=== PATIENT | male | born 1940 | race Caucasian/White ===

== ENCOUNTER 2020-01-27 10:47 | Inpatient (IN) | payer MEDICARE, OTHER ==
[~2020-01-27] VITALS: Ht 172.7 cm; Wt 81.8 kg
--- NOTE | 2020-01-27 11:51 | NUR ---
Arrived for level 1 stroke with onset at 0800 this morning. Awakened at 0500 this morning and was fine upon waking. Pt suddenly developed inability to move thumb and fingers on left hand. Denies any numbness or weakness in arms or legs. Sensation is intact, no ataxia or aphasia. Pt is right handed. 1200 Pt feels left finger movement has improved,however, his left thumb still is not "working."
--- NOTE | 2020-01-27 11:55 | NUR ---
Patient to CT Addendum: 01/27/20 at 1156 by HKISER with arin stroke rn
[2020-01-27 12:12] LABS: BASOPHILS % (AUTO) 0.8 % (0-1); EOSINOPHILS # (AUTO) 0.2 X10'3 (0-0.9); EOSINOPHILS % (AUTO) 3.5 % (0-6); HEMATOCRIT 41.9 % (42.0-52.0); HEMOGLOBIN 14.2 g/dl (14.0-17.9); LYMPHOCYTES # (AUTO) 1.5 X10'3 (1.1-4.8); LYMPHOCYTES % (AUTO) 27.4 % (21-51); MEAN CORPUSCULAR HEMOGLOBIN 33.5 PG (27.0-31.0); MEAN CORPUSCULAR VOLUME 98.5 FL (78-98); MONOCYTES # (AUTO) 0.6 X10'3 (0-0.9); MONOCYTES % (AUTO) 11.6 % (2-12); NEUTROPHILS # (AUTO) 3.1 X10'3 (1.8-7.7); NEUTROPHILS % (AUTO) 56.7 % (42-75); PLATELET COUNT 272 X10'3 (140-440); RED BLOOD COUNT 4.25 X10'6 (4.70-6.10); RED CELL DISTRIBUTION WIDTH 13.3 % (11.5-14.5); WHITE BLOOD COUNT 5.4 X10'3 (4.5-11.0)
[2020-01-27 12:25] LABS: PARTIAL THROMBOPLASTIN TIME 28 SECONDS (22-32)
[2020-01-27 12:30] LABS: ALANINE AMINOTRANSFERASE 44 U/L (12-78); ALBUMIN 3.9 G/DL (3.4-5.0); ALBUMIN/GLOBULIN RATIO 1.1 (1.1-1.5); ALKALINE PHOSPHATASE 92 IU/L (46-116); ANION GAP 6 (8-16); ASPARTATE AMINO TRANSFERASE 28 U/L (10-37); BILIRUBIN,TOTAL 0.4 MG/DL (0.1-1.0); BLOOD UREA NITROGEN 15 MG/DL (7-18); BUN/CREATININE RATIO 15.3 (5.4-32.0); CALCIUM 8.9 MG/DL (8.5-10.1); CHLORIDE 107 MMOL/L (99-107); CREATININE 0.98 MG/DL (0.60-1.10); GLUCOSE 108 MG/DL (70-104); POTASSIUM 4.3 MMOL/L (3.5-5.1); SODIUM 142 MMOL/L (135-145); TOTAL CARBON DIOXIDE 29.4 MMOL/L (24-32); TOTAL PROTEIN 7.6 G/DL (6.4-8.2); eGFR 74 ML/MIN
--- NOTE | 2020-01-27 12:30 | NUR ---
Tele-neuro eval completed with Dr Bowen at this time.
[2020-01-27] MEDS ORDERED: FLO0.4C PO (12:57)
[2020-01-27] MEDS ORDERED: OMEP10CA5 PO (12:57)
[2020-01-27] MEDS ORDERED: LEVO25TA7 PO (12:57)
[2020-01-27] MEDS ORDERED: SIMV20TA PO (12:57)
[2020-01-27] MEDS ORDERED: magnesium Cl slow-release 64mg tablet PO PRN (13:20)
[2020-01-27] MEDS ORDERED: diphenhydrAMINE 25mg capsule PO PRN (13:20)
[2020-01-27] MEDS ORDERED: bisacodyl 10mg suppository rectal RC PRN (13:20)
[2020-01-27] MEDS ORDERED: mag hydrox/Alum hydrox/simeth 30ml oral suspension PO PRN (13:20)
[2020-01-27] MEDS ORDERED: potassium CL 10mEq/100ml bag 100 ML IV PRN ×2 (13:20)
[2020-01-27] MEDS ORDERED: morphine 2 MG/ML inj. syringe IV PRN ×2 (13:20)
[2020-01-27] MEDS ORDERED: magnesium hydroxide 30ml (MOM) UD suspension PO PRN (13:20)
[2020-01-27] MEDS ORDERED: ondansetron/PF 4mg/2ml inj IV PRN (13:20)
[2020-01-27] MEDS ORDERED: acetaminophen 325mg tablet PO PRN ×2 (13:20)
[2020-01-27] MEDS ORDERED: magnesium 4gm in 100ml NS 100 ML IV PRN (13:20)
[2020-01-27] MEDS ORDERED: HYDROcodone/acetaminophen 5mg/325mg tablet PO PRN (13:20)
[2020-01-27] MEDS ORDERED: magnesium 2GM in 50ml NS 50 ML IV PRN (13:20)
[2020-01-27] MEDS ORDERED: potassium Cl 20 mEq SR tablet PO PRN ×2 (13:20)
[2020-01-27] MEDS ORDERED: acetaminophen 650mg rectal suppository RC PRN (13:20)
[2020-01-27] MEDS ORDERED: aspirin 325mg tablet PO ONE (13:20)
[2020-01-27] MEDS: atorvastatin 20mg tablet PO SCH (13:20)
[2020-01-27] MEDS ORDERED: HYDROcodone/acetaminophen 10/325mg tab PO PRN (13:20)
[2020-01-27 14:09] LABS: CHOL/HDL RATIO 3.2 (0.00-4.99); CHOLESTEROL 150 MG/DL (0-200); HDL CHOLESTEROL 47 MG/DL (35-60); LDL CHOLESTEROL 87 MG/DL (50-100); TRIGLYCERIDES 107 MG/DL (20-135)
[2020-01-27 14:15] LABS: HEMOGLOBIN A1C 6.1 % (4.5-6.2)
--- NOTE | 2020-01-27 14:32 | NUR ---
Patient in room ED 9. I have received report from Toyin in ED and had the opportunity to ask questions and assume patient care.
[2020-01-27 14:50] LABS: CLARITY,URINE CLEAR (Clear); COLOR,URINE YELLOW (Yellow); GLUCOSE, URINE NEGATIVE (Neg); KETONES,URINE NEGATIVE (Neg); LEUKOCYTE ESTERASE ,URINE NEGATIVE (Neg); NITRITES, URINE NEGATIVE (Neg); OCCULT BLOOD,URINE NEGATIVE (Neg); PH,URINE 6.5 (4.8-8.0); PROTEIN,URINE NEGATIVE (Neg); UA COLLECTION TYPE CLN CATCH MIDSTREAM; UROBILINOGEN,URINE 0.2 E.U/dL (0.2-1.0)
--- NOTE | 2020-01-27 15:23 | NUR ---
Pt arrived, tucked in, provided comfort measures, hung fluids
[2020-01-27 15:26] VITALS: BP 144/75
[2020-01-27] MEDS: normal saline 1000ml 1,000 ML IV SCH (15:37)
--- NOTE | 2020-01-27 16:00 | NUR ---
Received TC from RN that pt is vegetarian, informed dietary. Addendum: 01/27/20 at [address] Amended: Links added.
[2020-01-27 18:00] VITALS: BP 139/67
--- NOTE | 2020-01-27 18:28 | NUR ---
Patient in room [facility]TH[facility] 4022. I have received report from Taniya SAENZ and had the opportunity to ask questions and assume patient care.
[2020-01-27] MEDS: heparin, porcine 5000 units/ml vial SQ SCH (19:52)
[2020-01-27] MEDS: K and/or MAG REPLACEMENT MC SCH (19:52)
--- NOTE | 2020-01-27 21:54 | NUR ---
Patient still not able to move thumb. Index finger able to move more. Patient able to feel sensations. During finger to nose test patient not able to point with index finger but able to move his fist to follow commands. Addendum: 01/27/20 at 2159 by Tamia Parsons RN Amended: Links added.
[2020-01-27 22:00] VITALS: BP 102/54
[2020-01-28] VITALS (7 sets, daily range): BP systolic 101–117; BP diastolic 52–69
[2020-01-28] MEDS: normal saline 1000ml 1,000 ML IV SCH ×3 (03:44→21:21)
--- NOTE | 2020-01-28 06:22 | NUR ---
Problems reprioritized. Patient report given, questions answered & plan of care reviewed with Desiree SAENZ.
--- NOTE | 2020-01-28 06:25 | NUR ---
Patient in room ORTHO 4021. I have received report from Tamia SAENZ and had the opportunity to ask questions and assume patient care.
[2020-01-28 06:31] LABS: BASOPHILS % (AUTO) 0.6 % (0-1); EOSINOPHILS # (AUTO) 0.2 X10'3 (0-0.9); EOSINOPHILS % (AUTO) 4.4 % (0-6); HEMATOCRIT 39.4 % (42.0-52.0); HEMOGLOBIN 13.4 g/dl (14.0-17.9); LYMPHOCYTES # (AUTO) 1.3 X10'3 (1.1-4.8); LYMPHOCYTES % (AUTO) 27.4 % (21-51); MEAN CORPUSCULAR HEMOGLOBIN 33.7 PG (27.0-31.0); MEAN CORPUSCULAR HGB CONC 34.1 g/dL (33.0-36.5); MEAN CORPUSCULAR VOLUME 98.8 FL (78-98); MEAN PLATELET VOLUME 6.9 FL (7.4-10.4); MONOCYTES # (AUTO) 0.6 X10'3 (0-0.9); MONOCYTES % (AUTO) 12.3 % (2-12); NEUTROPHILS # (AUTO) 2.7 X10'3 (1.8-7.7); NEUTROPHILS % (AUTO) 55.3 % (42-75); PLATELET COUNT 235 X10'3 (140-440); RED BLOOD COUNT 3.98 X10'6 (4.70-6.10); RED CELL DISTRIBUTION WIDTH 13.1 % (11.5-14.5); WHITE BLOOD COUNT 4.8 X10'3 (4.5-11.0)
[2020-01-28 06:53] LABS: ALANINE AMINOTRANSFERASE 40 U/L (12-78); ALBUMIN 3.3 G/DL (3.4-5.0); ALBUMIN/GLOBULIN RATIO 0.8 (1.1-1.5); ALKALINE PHOSPHATASE 84 IU/L (46-116); ANION GAP 9 (8-16); ASPARTATE AMINO TRANSFERASE 21 U/L (10-37); BILIRUBIN,TOTAL 0.6 MG/DL (0.1-1.0); BLOOD UREA NITROGEN 14 MG/DL (7-18); BUN/CREATININE RATIO 15.2 (5.4-32.0); CALCIUM 8.3 MG/DL (8.5-10.1); CHLORIDE 110 MMOL/L (99-107); CHOL/HDL RATIO 3.3 (0.00-4.99); CHOLESTEROL 141 MG/DL (0-200); CREATININE 0.92 MG/DL (0.60-1.10); GLUCOSE 99 MG/DL (70-104); HDL CHOLESTEROL 43 MG/DL (35-60); LDL CHOLESTEROL 83 MG/DL (50-100); PHOSPHORUS 2.9 MG/DL (2.3-4.5); POTASSIUM 4.2 MMOL/L (3.5-5.1); SODIUM 143 MMOL/L (135-145); TOTAL CARBON DIOXIDE 23.9 MMOL/L (24-32); TOTAL PROTEIN 7.4 G/DL (6.4-8.2); TRIGLYCERIDES 83 MG/DL (20-135); eGFR 79 ML/MIN
[2020-01-28] MEDS: heparin, porcine 5000 units/ml vial SQ SCH ×2 (07:58→20:20)
[2020-01-28] MEDS: tamsulosin 0.4mg capsule PO SCH (07:58)
[2020-01-28] MEDS: levoTHYROXINE 25mcg tablet PO SCH (07:58)
[2020-01-28] MEDS: pantoprazole 40mg Tablet.DR PO SCH (07:59)
[2020-01-28] MEDS: aspirin 81mg tablet.DR PO SCH (07:59)
[2020-01-28] MEDS: atorvastatin 20mg tablet PO SCH ×2 (07:59→09:25)
[2020-01-28] MEDS: K and/or MAG REPLACEMENT MC SCH ×2 (08:00→21:21)
[2020-01-28] MEDS ORDERED: atorvastatin 10mg tablet PO SCH (08:00)
--- NOTE | 2020-01-28 10:03 | NUR ---
Paged Larry for Carotid order.
[2020-01-28] MEDS ORDERED: iohexol 350MG/ML 100ml bottle IV ONE (10:40)
[2020-01-28] MEDS ORDERED: atorvastatin 20mg tablet PO ONE (11:20)
[2020-01-28] MEDS ORDERED: clopidogrel 300mg tablet PO ONE (15:15)
--- NOTE | 2020-01-28 18:49 | NUR ---
Patient in room ORTHO 4022. I have received report from LETTY Ramírez and had the opportunity to ask questions and assume patient care.
[2020-01-29] VITALS: BP 115/59
[2020-01-29 02:00] VITALS: BP 148/61
[2020-01-29 04:00] VITALS: BP 115/64
[2020-01-29 05:53] VITALS: BP 135/67
--- NOTE | 2020-01-29 06:20 | NUR ---
Problems reprioritized. Patient report given, questions answered & plan of care reviewed with LETTY Goodrich.
--- NOTE | 2020-01-29 06:33 | NUR ---
Received report from Jory SAENZ
[2020-01-29 06:55] LABS: BASOPHILS % (AUTO) 0.6 % (0-1); EOSINOPHILS # (AUTO) 0.2 X10'3 (0-0.9); EOSINOPHILS % (AUTO) 4.7 % (0-6); HEMATOCRIT 38.1 % (42.0-52.0); HEMOGLOBIN 13.3 g/dl (14.0-17.9); LYMPHOCYTES # (AUTO) 1.4 X10'3 (1.1-4.8); LYMPHOCYTES % (AUTO) 29.9 % (21-51); MEAN CORPUSCULAR HEMOGLOBIN 34.5 PG (27.0-31.0); MEAN CORPUSCULAR HGB CONC 34.8 g/dL (33.0-36.5); MEAN CORPUSCULAR VOLUME 99.3 FL (78-98); MEAN PLATELET VOLUME 6.8 FL (7.4-10.4); MONOCYTES # (AUTO) 0.6 X10'3 (0-0.9); MONOCYTES % (AUTO) 12.7 % (2-12); NEUTROPHILS # (AUTO) 2.5 X10'3 (1.8-7.7); NEUTROPHILS % (AUTO) 52.1 % (42-75); PLATELET COUNT 231 X10'3 (140-440); RED BLOOD COUNT 3.84 X10'6 (4.70-6.10); WHITE BLOOD COUNT 4.7 X10'3 (4.5-11.0)
[2020-01-29 07:07] VITALS: BP 115/64
[2020-01-29 07:23] LABS: ALANINE AMINOTRANSFERASE 35 U/L (12-78); ALBUMIN 3.2 G/DL (3.4-5.0); ALKALINE PHOSPHATASE 72 IU/L (46-116); ANION GAP 7 (8-16); ASPARTATE AMINO TRANSFERASE 25 U/L (10-37); BILIRUBIN,TOTAL 0.5 MG/DL (0.1-1.0); BLOOD UREA NITROGEN 11 MG/DL (7-18); BUN/CREATININE RATIO 10.9 (5.4-32.0); CALCIUM 8.1 MG/DL (8.5-10.1); CHLORIDE 111 MMOL/L (99-107); CREATININE 1.01 MG/DL (0.60-1.10); GLUCOSE 102 MG/DL (70-104); MAGNESIUM 1.9 MG/DL (1.5-2.4); PHOSPHORUS 2.4 MG/DL (2.3-4.5); POTASSIUM 4.1 MMOL/L (3.5-5.1); SODIUM 143 MMOL/L (135-145); TOTAL CARBON DIOXIDE 25.5 MMOL/L (24-32); TOTAL PROTEIN 6.3 G/DL (6.4-8.2); eGFR 71 ML/MIN
[2020-01-29] MEDS: K and/or MAG REPLACEMENT MC SCH (08:00)
[2020-01-29] MEDS: levoTHYROXINE 25mcg tablet PO SCH (08:00)
[2020-01-29] MEDS: pantoprazole 40mg Tablet.DR PO SCH (08:00)
[2020-01-29] MEDS ORDERED: clopidogrel 75mg tablet PO SCH (08:00)
[2020-01-29] MEDS: tamsulosin 0.4mg capsule PO SCH (08:00)
[2020-01-29] MEDS: atorvastatin 20mg tablet PO SCH (08:00)
[2020-01-29] MEDS: aspirin 81mg tablet.DR PO SCH (08:00)
[2020-01-29] MEDS: heparin, porcine 5000 units/ml vial SQ SCH (08:01)
[2020-01-29] MEDS ORDERED: ASPI-1071 PO (13:57)
[2020-01-29] MEDS ORDERED: CLOP75TA35 PO (13:57)
[2020-01-29] MEDS ORDERED: ATOR20TA66 PO (13:57)
[2020-01-29] MEDS ORDERED: PANT40TA4 PO (13:57)
--- NOTE | 2020-01-29 16:47 | NUR ---
patient was discharged IV and tele was removed from patient. Medication was called into [facility].
[2020-02-06] MEDS ORDERED: CLOP75TA15 PO (12:21)
[2020-02-06] MEDS ORDERED: GLUC-221 PO (12:21)
[2020-02-06] MEDS ORDERED: PANT-47 PO (12:21)
[2020-02-06] MEDS ORDERED: ATOR80TA PO (12:21)
[2020-02-06] MEDS ORDERED: TURM538C PO (12:21)
[2020-02-06] MEDS ORDERED: ASPI-1265 PO (12:21)
[2020-02-06] MEDS ORDERED: SUPER B COMPLEX PO (12:21)
== END 2020-01-29 15:00 | disposition home health service (06) | DRG 66 ==
LOC: ER 10:48 → ED HOLD 13:19 → ORTHO 4S 15:28
PROVIDERS: ADMIT Family Medicine; ATTEND Family Medicine
PROC: B3251ZZ Computerized Tomography (CT Scan) of Bilateral Common Carotid Arteries using Low Osmolar Contrast (ICD-10-PCS; principal; 2020-01-28)
PROC: B32G1ZZ Computerized Tomography (CT Scan) of Bilateral Vertebral Arteries using Low Osmolar Contrast (ICD-10-PCS; 2020-01-28)
PROC: B3281ZZ Computerized Tomography (CT Scan) of Bilateral Internal Carotid Arteries using Low Osmolar Contrast (ICD-10-PCS; 2020-01-28)
DX: I63.9 Cerebral infarction, unspecified (principal); E03.9 Hypothyroidism, unspecified; E78.5 Hyperlipidemia, unspecified; G47.30 Sleep apnea, unspecified; K21.9 Gastro-esophageal reflux disease without esophagitis; N40.0 Benign prostatic hyperplasia without lower urinary tract symptoms; Z79.02 Long term (current) use of antithrombotics/antiplatelets; Z79.82 Long term (current) use of aspirin; Z79.899 Other long term (current) drug therapy; Z82.49 Family history of ischemic heart disease and other diseases of the circulatory system
CPT/HCPCS: 36415; 70450; 70496; 70498; 70544; 70551; 71045; 80053; 80061; 81003; 82948; 83036; 83735; 84100; 84443; 85025; 85610; 85651; 85730; 86885; 86900; 86901; 87081; 93005; 93306; 97110; 97116; 97161; 97530; 99285; G0378; J1644; J7030; Q9967

== ENCOUNTER 2020-11-15 13:53 | Emergency (ER) | payer MEDICARE, OTHER ==
[~2020-11-15] VITALS: Ht 177.8 cm; Wt 81.8 kg
[~2020-11-15 13:53] MED LIST: ASPI-1265 PO; ATOR80TA PO; CLOP75TA15 PO; FLO0.4C PO; GLUC-221 PO; LEVO25TA7 PO; PANT-47 PO; SUPER B COMPLEX PO; TURM538C PO
[2020-11-15 16:00] LABS: ALANINE AMINOTRANSFERASE 35 U/L (12-78); ALBUMIN 3.1 G/DL (3.4-5.0); ALKALINE PHOSPHATASE 96 IU/L (46-116); ANION GAP 6 (8-16); ASPARTATE AMINO TRANSFERASE 25 U/L (10-37); BILIRUBIN,TOTAL 0.4 MG/DL (0.1-1.0); BLOOD UREA NITROGEN 17 MG/DL (7-18); BUN/CREATININE RATIO 20.2 (5.4-32.0); CALCIUM 7.5 MG/DL (8.5-10.1); CHLORIDE 112 MMOL/L (99-107); CREATININE 0.84 MG/DL (0.60-1.10); GLUCOSE 106 MG/DL (70-104); POTASSIUM 3.8 MMOL/L (3.5-5.1); SODIUM 142 MMOL/L (135-145); TOTAL CARBON DIOXIDE 23.8 MMOL/L (24-32); TOTAL PROTEIN 6.1 G/DL (6.4-8.2); eGFR 88 ML/MIN
[2020-11-15] MEDS ORDERED: iohexol 300mg/ml 100ml inj. ONE (16:09)
[2020-11-15 17:07] VITALS: BP 142/74
== END 2020-11-15 17:06 | disposition home or self-care (01) ==
LOC: ER 13:54
DX: S70.02XA Contusion of left hip, initial encounter (principal); Z79.899 Other long term (current) drug therapy; W11.XXXA Fall on and from ladder, initial encounter; Y93.89 Activity, other specified; Y92.89 Other specified places as the place of occurrence of the external cause; Y99.8 Other external cause status
CPT/HCPCS: 36415; 73701; 80053; 99285; Q9967

== ENCOUNTER 2021-12-07 11:48 | Emergency (ER) | payer MEDICARE, OTHER ==
[~2021-12-07] VITALS: Ht 172.7 cm; Wt 86.0 kg
[2021-12-07 12:35] LABS: BASOPHILS % (AUTO) 0.3 % (0-1); EOSINOPHILS # (AUTO) 0.1 X10'3 (0-0.9); EOSINOPHILS % (AUTO) 0.8 % (0-6); HEMATOCRIT 41.8 % (42.0-52.0); HEMOGLOBIN 14.3 g/dl (14.0-17.9); LYMPHOCYTES # (AUTO) 1.2 X10'3 (1.1-4.8); LYMPHOCYTES % (AUTO) 10.9 % (21-51); MEAN CORPUSCULAR HEMOGLOBIN 34.1 PG (27.0-31.0); MEAN CORPUSCULAR HGB CONC 34.1 g/dL (33.0-36.5); MEAN CORPUSCULAR VOLUME 99.8 FL (78-98); MEAN PLATELET VOLUME 6.8 FL (7.4-10.4); MONOCYTES # (AUTO) 0.9 X10'3 (0-0.9); MONOCYTES % (AUTO) 8.2 % (2-12); NEUTROPHILS # (AUTO) 8.6 X10'3 (1.8-7.7); NEUTROPHILS % (AUTO) 79.8 % (42-75); PLATELET COUNT 285 X10'3 (140-440); RED BLOOD COUNT 4.18 X10'6 (4.70-6.10); RED CELL DISTRIBUTION WIDTH 12.7 % (11.5-14.5); WHITE BLOOD COUNT 10.8 X10'3 (4.5-11.0)
[2021-12-07 12:43] LABS: ALANINE AMINOTRANSFERASE 65 U/L (12-78); ALBUMIN 4.1 G/DL (3.4-5.0); ALBUMIN/GLOBULIN RATIO 1.3 (1.1-1.5); ALKALINE PHOSPHATASE 105 IU/L (46-116); ANION GAP 10 (8-16); ASPARTATE AMINO TRANSFERASE 86 U/L (10-37); BILIRUBIN,TOTAL 2.1 MG/DL (0.1-1.0); BLOOD UREA NITROGEN 17 MG/DL (7-18); CHLORIDE 103 MMOL/L (99-107); CREATININE 1.06 MG/DL (0.60-1.10); GLUCOSE 196 MG/DL (70-104); POTASSIUM 4.1 MMOL/L (3.5-5.1); SODIUM 140 MMOL/L (135-145); TOTAL CARBON DIOXIDE 26.6 MMOL/L (24-32); TOTAL PROTEIN 7.3 G/DL (6.4-8.2); eGFR 67 ML/MIN
[2021-12-07] MEDS ORDERED: LIDOcaine Viscous 15ml cup MM ONE (16:35)
[2021-12-07] MEDS ORDERED: mag hydrox/Alum hydrox/simeth 30ml oral suspension PO ONE (16:35)
[2021-12-07] MEDS ORDERED: ondansetron 4mg rapidly disintigrating tab PO ONE (16:35)
[2021-12-07] MEDS ORDERED: pantoprazole 40mg Tablet.DR PO SCH (16:36)
[2021-12-07 16:55] VITALS: BP 169/88
== END 2021-12-07 16:57 | disposition home or self-care (01) ==
LOC: ER 11:49
DX: R10.13 Epigastric pain (principal); R07.89 Other chest pain; M54.9 Dorsalgia, unspecified; G47.30 Sleep apnea, unspecified; Z79.82 Long term (current) use of aspirin; Z79.899 Other long term (current) drug therapy
CPT/HCPCS: 36415; 71045; 76700; 80053; 83880; 84484; 85025; 93005; 99285

== ENCOUNTER 2023-06-09 07:53 | Emergency (ER) | payer MEDICARE, OTHER ==
[~2023-06-09] VITALS: Ht 172.7 cm; Wt 81.2 kg
[2023-06-09 07:55] VITALS: BP 147/90
[2023-06-09] MEDS ORDERED: TETanus/Pertussis (Acell)/Diphther VAC/PF (Tdap-Adult) 0.5ml syringe IMVAC ONE (08:35)
[2023-06-09] MEDS ORDERED: LIDOcaine 1% 30ml preserv. free vial IJ ONE (09:15)
[2023-06-09] MEDS ORDERED: cephalexin 250mg capsule PO ONE (10:00)
[2023-06-09] MEDS ORDERED: CEPH-585 PO (10:15)
== END 2023-06-09 10:15 | disposition home or self-care (01) ==
LOC: ER 07:53
DX: S61.011A Laceration without foreign body of right thumb without damage to nail, initial encounter (principal); W27.0XXA Contact with workbench tool, initial encounter; Y93.89 Activity, other specified; Y92.89 Other specified places as the place of occurrence of the external cause; Y99.8 Other external cause status
CPT/HCPCS: 12002; 73140; 90471; 90715; 99284; A6449

== ENCOUNTER 2025-10-17 10:11 | Emergency (ER) | payer MEDICARE, OTHER ==
[~2025-10-17] VITALS: Ht 170.2 cm; Wt 83.1 kg
[~2025-10-17 10:11] MED LIST changes: +ATOR-429 PO; -ATOR80TA PO; -FLO0.4C PO; +TAMS-55 PO
--- NOTE | 2025-10-17 11:00 | RADIOLOGY REPORT ---
CT CT HEAD INDICATION: fall with headstrike, pain COMPARISON: None TECHNIQUE: CT of the head without intravenous contrast. RADIATION DOSE: CTDIvol: 69.8 mGy, DLP: 1382.7 mGy*cm FINDINGS: There is no evidence of acute intracranial hemorrhage, extra-axial collection, mass effect, midline shift, herniation or hydrocephalus. The ventricles, sulci and cisterns are age appropriate. The locke-white differentiation is intact. The visualized paranasal sinuses and mastoid air cells are clear. The surrounding soft tissues and osseous structures are unremarkable. IMPRESSION: No evidence of acute intracranial hemorrhage, mass effect or hydrocephalus.
--- NOTE | 2025-10-17 11:09 | RADIOLOGY REPORT ---
CLINICAL HISTORY: fall injury with headstrike COMPARISON: None TECHNIQUE: Axial CT images of the cervical spine were obtained without IV contrast. Coronal and sagittal reformatted images were obtained. All CT scans at this medical facility are performed using dose modulation techniques as appropriate to a performed exam including the following: Automated exposure control was utilized; adjustment of the MA and/or KV according to patient size; and use of iterative reconstruction technique. CTDIvol = 23.14 mGy DLP = 639.43 mGy-cm FINDINGS: Bones: Mild reversal of the normal cervical lordosis. Minimal anterolisthesis of C2 on C3 and minimal retrolisthesis of C3 on C4 and C4 on C5. Vertebral body heights are maintained. Posterior elements are intact. No acute fracture. Multilevel moderate to severe disc space narrowing in the cervical spine with associated endplate sclerosis and endplate spurring. No significant spinal canal stenosis. Multilevel facet and uncinate hypertrophy with areas of moderate neural foraminal stenosis. Paraspinal soft tissues: Prevertebral and paraspinal soft tissues are unremarkable. Other: Moderate atherosclerotic calcification at the left carotid bifurcation. Ground-glass attenuation in the upper lungs, may be partly due to motion artifact. Infectious or inflammatory etiology can not be completely excluded. Small calcified granuloma in the posterior aspect of the right upper lobe. IMPRESSION: 1. No evidence of acute fracture in the cervical spine. 2. Reversal of the normal cervical lordosis with multilevel minimal spondylolisthesis as described above. 3. 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 4. Ground-glass attenuation in the upper lungs, may be partly due to motion artifact. Superimposed infectious or inflammatory etiology not excluded in the appropriate clinical setting. Correlate with clinical findings.
[2025-10-17 11:43] LABS: MEAN PLATELET VOLUME 7.1 FL (7.4-10.4); RED CELL DISTRIBUTION WIDTH 12.8 % (11.5-14.5)
[2025-10-17 11:51] LABS: CREATININE 0.96 MG/DL (0.60-1.10); TOTAL CARBON DIOXIDE 27.4 MMOL/L (24-32); eCRCL 53 ML/MIN; eGFR 74 ML/MIN
--- NOTE | 2025-10-17 12:01 | RADIOLOGY REPORT ---
CLINICAL INDICATION: Left femur contusion TECHNIQUE: 1 radiographic views of the pelvis and 2 views of the left hip were obtained. Comparison: None FINDINGS/IMPRESSION: There is no evidence of acute fracture or dislocation. Moderate bilateral femoroacetabular joint osteoarthrosis. Degenerative changes of the pubic symphysis. Partially visualized degenerative changes of the lumbosacral spine.
--- NOTE | 2025-10-17 12:01 | RADIOLOGY REPORT ---
CLINICAL INDICATION: Left leg contusion TECHNIQUE: 2 radiographic views of the left tibia/fibula were obtained. Comparison: None FINDINGS/IMPRESSION: There is no evidence of acute fracture or dislocation. The visualized joint space is well maintained. The alignment is anatomical. There is no radiopaque foreign body.
--- NOTE | 2025-10-17 12:01 | RADIOLOGY REPORT ---
CLINICAL INDICATION: Left leg contusion TECHNIQUE: 2 radiographic views of the left femur were obtained. Comparison: CT LOWER EXTREMITY on DOS: 11/15/20 FINDINGS/IMPRESSION: There is no evidence of acute fracture or dislocation. The visualized joint space is well maintained. The alignment is anatomical. There is no radiopaque foreign body.
--- NOTE | 2025-10-17 12:18 | Physician Documentation ---
History of Present Illness ~ Chief Complaint: Trauma Level 3 Stated Complaint: FALL Time Seen by MD: 12:17 Primary Medical Doctor: UNKNOWN Mode of Arrival: POV HPI [age] Year-old male with past medical history of diabetes mellitus, hypothyroidism, hyperlipidemia, CVA presented to the ER with chief complaints of fall. He endorses that he had sustained a fall on Fridays for 40 5:00 p.m. while kneeling on the scaffolding and he could not able to use the feet while on the ladder and he was little bit slower after that he had multiple bumps over the left leg and left thigh right side of the face and he also complaining of the left ear ache. He had a dizziness and lightheadedness during the time of fall and he denied other cerebrovascular accident symptoms Tetanus within 5 years?: No Medication Reconciliation Allergies: Coded Allergies: No Known Allergies (Unverified , 10/17/25) Scheduled Aspirin (Aspirin), 1 TAB PO DAILY, (Reported) Atorvastatin Calcium* (Lipitor*), 1 TABLET PO HS, (Reported) Clopidogrel Bisulfate (Plavix), 1 TAB PO DAILY, (Reported) Glucosam/Chond/Hyalu/Cf Borate (Move Free Joint Health Tablet), 1 TAB PO DAILY, (Reported) Levothyroxine Sodium (Levothyroxine Sodium), 2 TAB PO DAILY, (Reported) Pantoprazole Sodium (PROTONIX tablet), 40 MG PO DAILY, (Reported) Tamsulosin Hcl* (Flomax*), 1 CAP PO DAILY, (Reported) Turmeric Root Extract (Turmeric), 1 CAP PO DAILY, (Reported) [Super B Complex], 1 TAB PO DAILY, (Reported) Past Medical History Past Medical History: No Pertinent History, High Cholesterol, Sleep Apnea, Diabetes, Hypothyroidism Past Surgical History: other Other Past Surgical History: Unknown Alcohol Use: None Drug Use: none Lives with: Spouse Lives In: Home Review of Systems All Other Systems at this time: Reviewed and Negative ROS Reviewed in full and negative except positive pertinent as in HPI Physical Exam Vital Signs: Temperature: 98.3, Source: Oral, Heart Rate: 63, Respiratory Rate: 20, BP: 116/63, Pulse Oximetry: 97, Weight: 83.100 Oxygen Flow Rate: 0 General Appearance: alert, WD/WN, no apparent distress Head: contusions, swelling Face: swelling Eye Lid: normal inspection Pupils/EOM/Fundus: PERRLA, EOM intact Ears: normal inspection, decreased hearing Nose: normal inspection Mouth: normal inspection Gag present: Yes Neck: non-tender, full range of motion, normal alignment, normal inspection, limited range of motion Respiratory: lungs clear, normal breath sounds, no respiratory distress Chest: normal inspection, non-tender, symmetrical Cardiovascular: normal peripheral pulses, regular rate, rhythm, no edema, no gallop, no JVD, no murmur Gastrointestinal: normal palpation, non-tender, bowels sounds present Rectal: deferred Back: normal inspection, no CVA tenderness Pelvis: normal Extremities Bruise in healing stages over the left lateral aspect of the leg and left femur and healing bruises over the right side of the face. Skin: warm/dry, swelling Neurologic: oriented x4, precast molder II-XII nml as tested, memory intact Motor / Sensory: no motor deficit Reflexes: 2+ bicep (R), 2+ bicep (L), 2+ tricep (R), 2+ tricep (L), 2+ knee (R), 2+ knee (L), 2+ ankle (R), 2+ ankle (L) Thoughts/Hallucinations: normal thought pattern Affect: appropriate Best Eye Response: (4) open spontaneously Best Verbal Response: (5) oriented Best Motor Response: (6) obeys commands [place] Total: 14 Progress Results/Orders Results/Orders Vital Signs 10/17/25 10/17/25 10/17/25 10/17/25 10:19 10:30 11:15 11:50 Temp 98.0 98.0 98.0 98.3 Pulse 64 60 59 63 Resp 16 16 17 20 B/P (MAP) 134/71 132/76 (94) 113/67 (82) 116/63 (80) Pulse Ox 97 96 96 97 O2 Flow Rate 0 0 0 0 10/17/25 10/17/25 10/17/25 11:52 12:47 13:57 Temp 98.3 98.3 Pulse 67 Resp 20 22 20 B/P (MAP) 110/69 (83) 106/75 Pulse Ox 97 97 O2 Flow Rate 0 Laboratory Tests Test 10/17/25 11:27 White Blood Count 6.1 Red Blood Count 3.80 L Hemoglobin 12.7 L Hematocrit 36.9 L Mean Corpuscular Volume 97.1 Mean Corpuscular Hemoglobin 33.4 H Mean Corpuscular Hemoglobin Concent 34.4 Red Cell Distribution Width 12.8 Platelet Count 258 Mean Platelet Volume 7.1 L Neutrophils (%) (Auto) 68.5 Lymphocytes (%) (Auto) 12.8 L Monocytes (%) (Auto) 14.5 H Eosinophils (%) (Auto) 3.3 Basophils (%) (Auto) 0.9 Neutrophils # (Auto) 4.2 Lymphocytes # (Auto) 0.8 L Monocytes # (Auto) 0.9 Eosinophils # (Auto) 0.2 Basophils # (Auto) 0.1 CBC Comment Sodium Level 140 Potassium Level 4.1 Chloride Level 106 Carbon Dioxide Level 27.4 Anion Gap 7 L Blood Urea Nitrogen 17 Creatinine 0.96 Estimated GFR/1.73 m2 74 BUN/Creatinine Ratio 17.7 Glucose Level 88 Calcium Level 8.6 Total Bilirubin 1.1 H Aspartate Amino Transf (AST/SGOT) 29 Alanine Aminotransferase (ALT/SGPT) 29 Alkaline Phosphatase 112 Total Protein 6.8 Albumin 3.2 L Globulin 3.6 Albumin/Globulin Ratio 0.9 L Chemistry Comments EKG/XRAY/CT/US/VASC/MRI CT : Impression CT CT HEAD INDICATION: fall with headstrike, pain COMPARISON: None TECHNIQUE: CT of the head without intravenous contrast. RADIATION DOSE: CTDIvol: 69.8 mGy, DLP: 1382.7 mGy*cm FINDINGS: There is no evidence of acute intracranial hemorrhage, extra-axial collection, mass effect, midline shift, herniation or hydrocephalus. The ventricles, sulci and cisterns are age appropriate. The locke-white differentiation is intact. The visualized paranasal sinuses and mastoid air cells are clear. The surrounding soft tissues and osseous structures are unremarkable. IMPRESSION: No evidence of acute intracranial hemorrhage, mass effect or hydrocephalus. Electronically Signed by:ARIC SMITH MD Date & Time: 10/17/251057 Dictated by: ARIC SMITH MD Dictation date and time: 10/17/25 105 Primary Care Provider: NO PRIMARY CARE PROVIDER cc: EVANGELISTA MORRISON LACE SEWER ~ Patient: ELIZA COOL Medical Record: [id number] [facility] : 1940, Age: 85 Sex: Male Location: ER Patient Status: [facility] ER Service Date/Time: 10/17/251025 Ordering Physician: EVANGELISTA MORRISON LACE SEWER Exam: CT CERVICAL SPINE CLINICAL HISTORY: fall injury with headstrike COMPARISON: None TECHNIQUE: Axial CT images of the cervical spine were obtained without IV contrast. Coronal and sagittal reformatted images were obtained. All CT scans at this medical facility are performed using dose modulation techniques as appropriate to a performed exam including the following: Automated exposure control was utilized; adjustment of the MA and/or KV according to patient size; and use of iterative reconstruction technique. CTDIvol = 23.14 mGy DLP = 639.43 mGy-cm FINDINGS: Bones: Mild reversal of the normal cervical lordosis. Minimal anterolisthesis of C2 on C3 and minimal retrolisthesis of C3 on C4 and C4 on C5. Vertebral body heights are maintained. Posterior elements are intact. No acute fracture. Multilevel moderate to severe disc space narrowing in the cervical spine with associated endplate sclerosis and endplate spurring. No significant spinal canal stenosis. Multilevel facet and uncinate hypertrophy with areas of moderate neural foraminal stenosis. Paraspinal soft tissues: Prevertebral and paraspinal soft tissues are unremarkable. Other: Moderate atherosclerotic calcification at the left carotid bifurcation. Ground-glass attenuation in the upper lungs, may be partly due to motion artifact. Infectious or inflammatory etiology can not be completely excluded. Small calcified granuloma in the posterior aspect of the right upper lobe. IMPRESSION: 1. No evidence of acute fracture in the cervical spine. 2. Reversal of the normal cervical lordosis with multilevel minimal spondylolisthesis as described above. 3. 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 4. Ground-glass attenuation in the upper lungs, may be partly due to motion artifact. Superimposed infectious or inflammatory etiology not excluded in the appropriate clinical setting. Correlate with clinical findings. Electronically Signed by:ARIC ALBERTO DO Date & Time: 10/17/251105 Dictated by: ARIC ALBERTO DO Dictation date and time: 10/17/251105 Primary Care Provider: NO PRIMARY CARE PROVIDER cc: EVANGELISTA MORRISON LACE SEWER ~ Medical Decision Making Additional information obtaine: old records, family Findings Mechanical fall Multiple bruises Foreign body in left ear(a piece of hearing aid) CBC showed hemoglobin of 12.7 and serum bilirubin of 1.1 without much changes in CBC and CMP CT head and cervical spine showed no fracture showed degenerative cervical disc disease Left tibia fibula with left femur and hip x-ray showed no fracture but showed moderate bilateral femoroacetabular joint osteoarthrosis with a degenerate changes of pubic symphysis and lumbosacral spine degenerative disease. We irrigated the left ear followup With primary care physician in Outpatient Use Tylenol q.4h p.r.n. Differential Dx:Considerations: Include: Contusion(s) Departure Disposition: 01 HOME / SELF CARE / HOMELESS Impression: Primary Impression: Contusion Qualified Codes: S00.93XA - Contusion of unspecified part of head, initial encounter Additional Impression: Fall Qualified Codes: W19.XXXA - Unspecified fall, initial encounter Condition: Stable Discharge Instructions: Fall Prevention in the Home, Adult Referrals: NO PRIMARY CARE PROVIDER (PCP) Education Educated: Patient, Family Educated regarding: diagnosis, treatment, prognosis Additional Comment Seen with PA/BRENDEN Patient was seen with the medical reviewer. I have reviewed the resident's note and agree with the note and the assessment plan as written. I have supervised all aspects of the residents care. I have individually examined the patient. The patient has a contusion to the right side of his face after a fall the patient otherwise is without any significant evidence of trauma plain film x- rays of his lower extremities were unremarkable and CT imaging failed to demonstrate any fracture or intracranial hemorrhage. The patient was noted to have a piece of his hearing aid in the left external ear canal. This was removed with ear irrigation. The patient will be discharged with instructions to follow up as an outpatient. The patient's pulse oximetry was interpreted as adequate normal. The patient's cardiac rehabilitation specialist was interpreted as a sinus rhythm Signature Scribe Signature: The note accurately reflects work and decisions made by me.Ryan Vigil - Resident 10/17/25 13:40 Attestation: The note accurately reflects work and decisions made by me.Venkatesh Vigil - Resident 10/17/25 13:40 RYAN VIGIL, RES Oct 17, 2025 12:18 JANAE CHRISTIANSON MD Oct 17, 2025 13:20
[2025-10-17 12:47] VITALS: PULSE 67
[2025-10-17 13:57] VITALS: BP 106/75; RESP 20; TEMP 98.3; O2SAT 97
== END 2025-10-17 13:59 | disposition home or self-care (01) ==
LOC: ER 10:12
DX: S00.93XA Contusion of unspecified part of head, initial encounter (principal); H61.22 Impacted cerumen, left ear; E78.5 Hyperlipidemia, unspecified; E78.00 Pure hypercholesterolemia, unspecified; G47.30 Sleep apnea, unspecified; E11.9 Type 2 diabetes mellitus without complications; E03.9 Hypothyroidism, unspecified; Z86.73 Personal history of transient ischemic attack (TIA), and cerebral infarction without residual deficits; Z79.82 Long term (current) use of aspirin; Z79.899 Other long term (current) drug therapy; W18.39XA Other fall on same level, initial encounter; Y93.89 Activity, other specified; Y92.89 Other specified places as the place of occurrence of the external cause; Y99.8 Other external cause status
CPT/HCPCS: 36415; 69209; 70450; 72125; 72170; 73552; 73590; 80053; 85025; 99285